=== PATIENT | male | born 1995 ===

== ENCOUNTER 2020-11-02 15:38 | Emergency (ER) | payer SELFPAY ==
[~2020-11-02] VITALS: Ht 175.3 cm; Wt 79.2 kg
[2020-11-02 15:45] VITALS: BP 129/70
== END 2020-11-02 19:59 | disposition left against medical advice (07) ==
LOC: M ED 15:38
DX: Z53.21 Procedure and treatment not carried out due to patient leaving prior to being seen by health care provider (principal)